=== PATIENT | female | born 1960 | race Caucasian/White ===

== ENCOUNTER 2016-08-14 12:23 | Emergency (ER) | payer BC ==
[2016-08-14 12:51] VITALS: BP 135/68
[2016-08-14] MEDS ORDERED: cefTRIAXone VIAL(*) 1,000 MG VIAL IM ONE (13:04)
--- NOTE | 2016-08-14 13:09 | UC ---
Skin Complaint HPI - HPI Summary HPI Summary: patient started with a sore on the right side of her nare, the past few days the outside of the nostril has gotten red, hard and swollen the redness extending to the right maxilla. the area is painful., lyphmadenopathy of the sumbandible is also noted - History of Current Complaint Chief Complaint: UCGeneralIllness Time Seen by Provider: 08/14/16 12:48 Stated Complaint: RIGHT SIDE FACIAL/NOSE SWOLLEN Hx Obtained From: Patient Hx Last Menstrual Period: N/A ?: No Onset/Duration: Sudden Onset, Lasting Days Skin Exposure Onset/Duration: Days Ago Timing: Constant Onset Severity: Moderate Current Severity: Severe Location: Discrete, Face Character: Swelling, Raised, Painful Aggravating: Touch Alleviating: Nothing - Allergy/Home Medications Allergies/Adverse Reactions: Allergies Allergy/AdvReac Type Severity Reaction Status Date / Time No Known Allergies Allergy Verified 08/14/16 12:52 Home Medications: Home Medications Benazepril HCl [Lotensin-] 40 mg PO DAILY 08/14/16 [History Confirmed 08/14/16] Ergocalciferol [Vitamin D2] 400 unit PO WEEKLY 08/14/16 [History Confirmed 08/14] Glimepiride [Amaryl] 2 mg PO DAILY 08/14/16 [History Confirmed 08/14/16] Lisinopril/HCTZ 20/12.5(NF) [Zestoretic 20/12.5(NF)] 0.5 tab PO DAILY 08/14/16 [ History Confirmed 08/14/16] Tamoxifen TAB* [Nolvadex*] 20 mg PO DAILY 08/14/16 [History Confirmed 08/14/16] Venlafaxine EXT RELEASE CAP* [Effexor Xr CAP*] 150 mg PO DAILY 08/14/16 [ History Confirmed 08/14/16] Review of Systems Constitutional: Negative Skin: Other - redness Eyes: Negative ENT: Dental Pain, Other - nose pain Respiratory: Negative Cardiovascular: Negative Gastrointestinal: Negative Genitourinary: Negative Motor: Negative Neurovascular: Negative Musculoskeletal: Negative Neurological: Negative Psychological: Negative All Other Systems Reviewed And Are Negative: Yes PMH/Surg Hx/FS Hx/Imm Hx Previously Healthy: Yes Endocrine History Of: Reports: Diabetes - type 2 Cardiovascular History Of: Reports: Hypertension Denies: Pacemaker/ICD Respiratory History Of: Denies: Asthma GI/ History Of: Denies: Renal Disease Cancer History Of: Reports: Breast Cancer - right, dcis - Surgical History Surgical History: Yes Surgery Procedure, Year, and Place: 3 C-SECTIONS, TUBAL, TONSILS,RT BREAST CA ( DUCTAL ) 05/2014 - Family History Known Family History: Positive: Cardiac Disease, Diabetes - Social History Alcohol Use: None Substance Use Type: None Smoking Status (MU): Former Smoker - Immunization History Most Recent Tetanus Shot: unsure Physical Exam Triage Information Reviewed: Yes Appearance: Well-Nourished, Ill-Appearing, Pain Distress Vital Signs: Initial Vital Signs Temp 97.7 F 08/14/16 12:47 Pulse 73 08/14/16 12:47 Resp 14 08/14/16 12:47 BP 135/68 08/14/16 12:47 Pulse Ox 97 08/14/16 12:47 Vital Signs Reviewed: Yes Eye Exam: Normal Eyes: Positive: Conjunctiva Inflamed ENT: Positive: Pharyngeal erythema, Nasal congestion, TMs normal, Other: - right maxillary pain with palpation Dental Exam: Normal Neck exam: Normal Neck: Positive: Supple, Nontender, Enlarged Nodes @ - right submandibular, cervical Respiratory Exam: Normal Respiratory: Positive: Chest non-tender, Lungs clear, Normal breath sounds Cardiovascular Exam: Normal Cardiovascular: Positive: RRR, No Murmur, Pulses Normal Abdominal Exam: Normal Abdomen Description: Positive: Nontender, No Organomegaly, Soft Bowel Sounds: Positive: Present Musculoskeletal Exam: Normal Musculoskeletal: Positive: Strength Intact, ROM Intact, No Edema Neurological: Positive: Other: - right side facial droop fro Garrett palsy, otherwise normal neurological exam Psychological Exam: Normal Skin: Positive: Other - red induration of the side of right nose, no fluctuance or pustule noted. Course/Dx - Course Course Of Treatment: Hx obtained, MRSA previously, exam performed, Rocephin given IM, Bactrim prescribed. recommend returning if no improvemen in the nest 24-28 hours. - Differential Diagnoses - Skin Complaint Differential Diagnoses: Abscess, Cellulitis, Contact Dermatitis, Medication; Adverse Reaction, MRSA, Urticaria - Diagnoses Provider Diagnoses: Facial Cellulitis. maxillary sinus pressure. bells palsy Discharge - Discharge Plan Condition: Stable Disposition: HOME Patient Education Materials: Cellulitis (ED) Additional Instructions: 1. take the medication as prescribed. 2. Increase fluid intake and apply warm compresses to the area. 3. Follow up in if no improvement in 2-3 days
[2016-08-14] MEDS ORDERED: Lidocaine 1% MPF* 2 ML VIAL ONE (13:10)
== END 2016-08-14 13:38 | disposition home or self-care (01) ==
LOC: UCCORT 12:23
DX: L03.211 Cellulitis of face (principal); J34.89 Other specified disorders of nose and nasal sinuses; G51.0 Bell's palsy; E11.9 Type 2 diabetes mellitus without complications; Z79.84 Long term (current) use of oral hypoglycemic drugs; I10 Essential (primary) hypertension; Z85.3 Personal history of malignant neoplasm of breast; Z87.891 Personal history of nicotine dependence
CPT/HCPCS: 96372; 99212; G0463; J0696